=== PATIENT | female | born 1945 | race Caucasian/White ===

== ENCOUNTER 2018-02-13 20:00 | Emergency (ER) | payer MEDICARE, BC ==
[2018-02-13 20:56] VITALS: BP 152/82
--- NOTE | 2018-02-13 21:12 | UC ---
UC General HPI - HPI Summary HPI Summary: pt c/o frequent urination with burning and bladder pressure. onset this pm. uti years ago that felt the same. - History of Current Complaint Chief Complaint: UCGU Stated Complaint: URINARY Time Seen by Provider: 02/13/18 21:00 Hx Obtained From: Patient Onset/Duration: Gradual Onset Timing: Constant Pain Intensity: 6 Associated Signs & Symptoms: Positive: Dysuria. Negative: Back Pain, Fever - Allergy/Home Medications Allergies/Adverse Reactions: Allergies Allergy/AdvReac Type Severity Reaction Status Date / Time No Known Allergies Allergy Verified 02/13/18 20:57 Home Medications: Home Medications Abc Plus Senior M-Vit 1 tab PO DAILY 02/13/18 [History Confirmed 02/13/18] Mesalamine [Mesalamine Dr] 2.4 gm PO DAILY 02/13/18 [History Confirmed 02/13/18] Omeprazole 40 mg PO DAILY 02/13/18 [History Confirmed 02/13/18] Turmeric Curcumin W/ Bioperine 1,200 mg PO BID 02/13/18 [History Confirmed 02/13] l Gasseri/B Bifidum/B Longum [Tapstream] 2 cap PO DAILY 02/13/18 [ History Confirmed 02/13/18] PMH/Surg Hx/FS Hx/Imm Hx - Additional Past Medical History Additional PMH: uti, IBS GI/ History: Gastroesophageal Reflux - Surgical History Surgical History: Yes Surgery Procedure, Year, and Place: tonsils age 7; tubal ligation - Family History Known Family History: Positive: None - Social History Occupation: Retired Lives: Alone Alcohol Use: Rare Substance Use Type: None Smoking Status (MU): Former Smoker When Did the Patient Quit Smoking/Using Tobacco: 1999 - Immunization History Vaccination Up to Date: Yes Review of Systems Constitutional: Negative Skin: Negative Eyes: Negative ENT: Negative Respiratory: Negative Cardiovascular: Negative Gastrointestinal: Abdominal Pain - pressure Genitourinary: Dysuria, Frequency, Urgency Motor: Negative Neurovascular: Negative Musculoskeletal: Negative Neurological: Negative Psychological: Negative Is Patient Immunocompromised?: No All Other Systems Reviewed And Are Negative: Yes Physical Exam Triage Information Reviewed: Yes Appearance: Well-Appearing Vital Signs: Initial Vital Signs Temp 98.4 F 02/13/18 20:47 Pulse 75 02/13/18 20:47 Resp 18 06/04/18 20:47 BP 152/82 02/13/18 20:47 Pulse Ox 97 02/13/18 20:47 Vital Signs Reviewed: Yes Eyes: Positive: Conjunctiva Clear ENT: Positive: Normal ENT inspection Neck: Positive: Supple, Nontender, No Lymphadenopathy Respiratory: Positive: Lungs clear, Normal breath sounds Cardiovascular: Positive: RRR, No Murmur Abdomen Description: Positive: Nontender, No Organomegaly, Soft. Negative: CVA Tenderness (R), CVA Tenderness (L), Distended, Guarding Bowel Sounds: Positive: Present Musculoskeletal: Positive: ROM Intact Neurological: Positive: Alert Psychological: Positive: Age Appropriate Behavior Skin Exam: Normal Diagnostics - Laboratory Diagnostic Studies Completed/Ordered: u/a + protein, blood, leukocytes. culture is pending. Course/Dx - Course Course Of Treatment: non toxic, no concern for pyelonephritis - Differential Dx - Multi-Symptom Provider Diagnoses: UTI Discharge - Sign-Out/Discharge Documenting (check all that apply): Discharge/Admit/Transfer - Discharge Plan Condition: Stable Disposition: HOME Prescriptions: Cephalexin CAP* [Keflex CAP*] 500 mg PO BID #14 cap Patient Education Materials: Urinary Tract Infection in Women (DC) Referrals: Sary Locke [Primary Care Provider] - 7 Days - Billing Disposition and Condition Condition: STABLE Disposition: Home
[2018-02-13] MEDS ORDERED: Cephalexin CAP* 500 MG PO ONE (21:19)
[2018-02-13] MEDS ORDERED: Phenazopyridine TAB* 100 MG PO ONE (21:20)
== END 2018-02-13 21:33 | disposition home or self-care (01) ==
LOC: UCCORT 20:00
DX: N39.0 Urinary tract infection, site not specified (principal); K21.9 Gastro-esophageal reflux disease without esophagitis
CPT/HCPCS: 81003; 87077; 87086; 87186; 99202; A9270-GY; G0463